=== PATIENT | female | born 1955 | race Caucasian/White ===

== ENCOUNTER → 2021-02-02 10:00 | Outpatient (BNVA) | payer OTHER, SELFPAY | PROVIDERS: PCP Nurse Practitioner Family; Visit Provider Nurse Practitioner Family | DX: E03.9 Hypothyroidism, unspecified (principal); Z12.11 Encounter for screening for malignant neoplasm of colon; R63.4 Abnormal weight loss; K63.5 Polyp of colon; R79.89 Other specified abnormal findings of blood chemistry | CPT/HCPCS: 84443 ==

== ENCOUNTER 2021-02-16 09:56 | Day surgery (SDC) | payer OTHER, SELFPAY ==
--- NOTE | 2021-02-16 09:10 | W.PM.OPSFHP ---
Same Day Surgery H&P Indication for Procedure/HPI DATE OF PROCEDURE: February 16, 2021 CHIEF COMPLAINT/INDICATIONFOR SURGICAL PROCEDURE: Routine screening average risk PREOP DIAGNOSIS: Routine screening average risk PLANNED PROCEDRUE: Operation Date: 02/16/21 11:15 Proposed Procedures p Colonoscopy G0105 Z12.11 Z86.010(Not Applicable) - Lebron Alvarado MD Medications/Allergies* Home Medications Medication Instructions Recorded Confirmed Type ascorbate calcium (vitamin C) 500 500 mg PO DAILY 02/02/21 02/15/21 History mg tablet calcium carbonate 600 mg calcium 600 mg PO DAILY 02/02/21 02/15/21 History (1,500 mg) tablet cholecalciferol (vitamin D3) 1,250 1,250 mcg PO DAILY 02/02/21 02/15/21 History mcg (50,000 unit) oral wafer vitamin E 200 unit capsule 200 unit PO DAILY 02/02/21 02/15/21 History Allergies/Adverse Reactions Allergy/AdvReac Type Severity Reaction Status Date / Time No Known Allergies Allergy Verified 02/15/21 08:31 Pertinent History/Comorbid Conditions* Family History (Updated 02/02/21 @ 09:43 by Jihan Matthews LPN) Diabetes Mother Hypertension Father Pertinent Exam Findings alert, oriented x 3, clear to auscultation bilaterally, regular rate & rhythm, operative site marked and procedure specific exam findings Recommendations Surgery/Procedure today Coding Level of Care Code Acute [employer] for [employer]
--- NOTE | 2021-02-16 10:43 | ANES.PREANE2 ---
Pre-Anesthetic Assessment Pre-Anesthetic Assessment: Height/Weight: Height 1.57 m Weight 55.338 kg Preop Diagnosis: Routine screening average risk Proposed Procedure: Operation Date: 02/16/21 11:15 Proposed Procedures p Colonoscopy G0105 Z12.11 Z86.010(Not Applicable) - Lebron Alvarado MD Familial anesthetic complications: None Was Beta Zara taken within 24 hours: N/A Was Clonidine taken within 24 hours: N/A Last intake: nPO > 8 hrs Social: Social History: No alcohol and No tobacco Exam: Pre-Anes Outpt Exam: alert, oriented x 3, clear to auscultation bilaterally and regular rate & rhythm Airway: Cervical ROM: WNL MP: 1 Dentition: Full Anesthetic Plan: ASA status: 1 Anesthesia: MAC Risk of > 500 ml blood loss (7ml/kg in children): No PFSH Anesthesia PFSH: Family History (Updated 02/02/21 @ 09:43 by Jihan Matthews LPN) Mother Diabetes Father Hypertension Data Anesthesia Cardiac Studies: No Data to Display
[2021-02-16 11:14] VITALS: BP 147/79; PULSE 79; RESP 16; TEMP 36.7; O2SAT 100
[2021-02-16] MEDS: sodium chloride 0.9% 1,000 ML 30 ML IV (11:27)
[2021-02-16 12:10] VITALS: BP 108/57; PULSE 70; RESP 18; TEMP 36.1; O2SAT 95
[2021-02-16 12:25] VITALS: BP 114/62; PULSE 59; RESP 18; O2SAT 100
--- NOTE | 2021-02-16 13:19 | ANE.PACU2 ---
Inpatient post-anesthesia follow up: Airway intact: Yes Vital signs: Temperature 97 F Pulse Rate 59 Respiratory Rate 18 Blood Pressure 114/62 Pulse Oximetry 100 Oxygen Delivery Me thod Room Air Oxygen Flow Rate Fraction of Inspir ed Oxygen Hydration adequate: Yes Nausea and vomiting: No Pain level: 2 Mental status: Baseline
== END 2021-02-16 12:37 | disposition home or self-care (01) ==
PROVIDERS: PCP Nurse Practitioner Family; Visit Provider Internal Medicine
PROC: 0DJD8ZZ Inspection of Lower Intestinal Tract, Via Natural or Artificial Opening Endoscopic (ICD-10-PCS; CPT 45378; principal; 2021-02-16 11:15)
DX: Z12.11 Encounter for screening for malignant neoplasm of colon (principal); K57.30 Diverticulosis of large intestine without perforation or abscess without bleeding; Z86.010 Personal history of colon polyps; Z82.49 Family history of ischemic heart disease and other diseases of the circulatory system; Z83.3 Family history of diabetes mellitus
CPT/HCPCS: 45378; 96360; 96361; J7030

== ENCOUNTER → 2021-10-18 15:49 | Outpatient (BNVA) | payer OTHER, SELFPAY | PROVIDERS: PCP Nurse Practitioner Family; Visit Provider Nurse Practitioner Family | DX: Z00.00 Encounter for general adult medical examination without abnormal findings (principal); Z13.820 Encounter for screening for osteoporosis | CPT/HCPCS: 80053; 83036; 84443 ==

== ENCOUNTER → 2021-11-02 09:21 | Outpatient (BNVA) | payer OTHER, SELFPAY | PROVIDERS: PCP Nurse Practitioner Family; Visit Provider Internal Medicine | DX: Z00.00 Encounter for general adult medical examination without abnormal findings (principal) | CPT/HCPCS: 80061 ==

== ENCOUNTER 2021-11-21 14:13 | Outpatient (CLI) | payer OTHER, SELFPAY ==
--- NOTE | 2021-11-21 14:45 | XR_ITS ---
WS: [id number] SCREENING DEXA SCAN [facility] [facility] [employer] CLINICAL INFORMATION: Screening COMPARISON: None. FINDINGS: The L1-L4 bone mineral density measures 0.948 g/cm2. This corresponds to a T score score of -1.9 and Z score of 0.0. Left femoral neck bone mineral density measures 0.852 g/cm2. This corresponds to a T score of -1.2 an d Z score of 0.2. Right femoral neck bone mineral density measures 0.833 g/cm2. This corresponds to a T score -1.4of an d Z score of 0.1. Mean femoral neck bone mineral density measures 0.842 g/cm2. This corresponds to a T score of -1.3 an d Z score of 0.2. XR/XR DEXA axial skeleton* [id number] IMPRESSION: Osteopenia Patient's FRAX calculated 10 year probability for major osteoporotic fracture i s 10.8 % and osteoporotic hip fracture is 1.8%.
== END 2021-11-21 14:14 | disposition home or self-care (01) ==
LOC: RAD 14:15
PROVIDERS: PCP Nurse Practitioner Family; Visit Provider Nurse Practitioner Family
DX: Z13.820 Encounter for screening for osteoporosis (principal); M85.88 Other specified disorders of bone density and structure, other site
CPT/HCPCS: 77080

== ENCOUNTER → 2022-12-18 10:19 | Outpatient (BNVA) | payer MEDICARE, OTHER, SELFPAY | PROVIDERS: PCP Family Medicine; Visit Provider Family Medicine | DX: Z13.6 Encounter for screening for cardiovascular disorders (principal) | CPT/HCPCS: 80053; 80061; 84443; 85025 ==

== ENCOUNTER → 2024-03-23 08:51 | Outpatient (BNVA) | payer MEDICARE, OTHER, SELFPAY | PROVIDERS: PCP Family Medicine; Visit Provider Family Medicine | DX: R63.4 Abnormal weight loss (principal); D64.9 Anemia, unspecified | CPT/HCPCS: 80053; 82728; 83550; 84439; 84443; 85025 ==

== ENCOUNTER → 2025-03-15 10:10 | Outpatient (BNVA) | payer MEDICARE, OTHER, SELFPAY | PROVIDERS: PCP Family Medicine; Visit Provider Family Medicine | DX: Z13.6 Encounter for screening for cardiovascular disorders (principal); Z11.59 Encounter for screening for other viral diseases; B19.20 Unspecified viral hepatitis C without hepatic coma | CPT/HCPCS: 80053; 80061; 80074; 85025 ==